=== PATIENT | male | born 1995 | race Caucasian/White ===

== ENCOUNTER 2018-06-27 10:17 | Emergency (ER) | payer MEDICAID ==
[~2018-06-27] VITALS: Wt 75.9 kg
[2018-06-27] MEDS ORDERED: IBUPROFEN 600 MG TAB PO ONE (12:00)
[2018-06-27] MEDS ORDERED: DOXY100T20 PO (12:09)
[2018-06-27] MEDS ORDERED: IBUP-1542 PO (12:09)
--- NOTE | 2018-06-27 12:16 | ERD ---
ER Documentation Chief Complaint Chief Complaint BACK PAIN X 2 WEEKS; POSSIBLE PAIN FROM DRAINED ABSCESS ON BACK HPI 22-year-old male presents with low back pain for last 2 weeks. He feels that it might be due to pilonidal cyst he had drained 4 months ago. He denies any fevers, vomiting, shortness of breath, weakness, bowel or bladder incontinence, urinary complaints. Pain is described as 4-10. May be some radiation from upper to lower back. Pain is dull. ROS All systems reviewed and are negative except as per history of present illness. Medications Home Meds Active Scripts Doxycycline Hyclate* (Doxycycline Hyclate*) 100 Mg Tablet.dr, 100 MG PO BID for 7 Days, TAB Prov:TUCKER GAITAN MD 06/27/18 Ibuprofen* (Motrin*) 600 Mg Tab, 600 MG PO Q6, #20 TAB Prov:TUCKER GAITAN MD 06/27/18 PMhx/Soc Medical and Surgical Hx: pt denies Medical Hx, pt denies Surgical Hx Hx Alcohol Use: No Hx Substance Use: No Hx Tobacco Use: No Smoking Status: Never smoker FmHx Family History: No diabetes, No coronary disease, No other Physical Exam Vitals Vital Signs Date Temp Pulse Resp B/P (MAP) Pulse Ox O2 O2 Flow FiO2 Time Delivery Rate 06/27/18 98.1 78 18 143/62 99 10:21 (89) Physical Exam Const: No acute distress Head: Atraumatic Eyes: Normal Conjunctiva ENT: Normal External Ears, Nose and Mouth. Neck: Full range of motion. No meningismus. Resp: Clear to auscultation bilaterally Cardio: Regular rate and rhythm, no murmurs Abd: Soft, non tender, non distended. Normal bowel sounds Skin: No petechiae or rashes Back: No midline or flank tenderness. Minimal tenderness from L2-L4 right greater than left. No midline tenderness or deformities. There is a small draining pilonidal cyst without significant erythema, fluctuance, induration. Ext: No cyanosis, or edema Neur: Awake and alert Psych: Normal Mood and Affect Results 24 hrs Laboratory Tests Test 06/27/18 11:50 Bedside Urine pH (LAB) 7.5 Bedside Urine Protein (LAB) Negative Bedside Urine Glucose (UA) Negative Bedside Urine Ketones (LAB) Negative Bedside Urine Blood Negative Bedside Urine Nitrite (LAB) Negative Bedside Urine Leukocyte Esterase (L Negative Current Medications Medications Dose Sig/Amanad Start Time Status Last (Trade) Ordered Route PRN Stop Time Admin Dose Reason Admin Ibuprofen 600 mg ONCE ONCE 06/27/18 DC 06/27/18 (Motrin) PO 12:00 06/27/18 11:42 12:01 Procedures/MDM Urine is negative. X-ray LS-Spine 3V Interpreted by me: Bones: No fracture, or lytic lesions Joints: No dislocation Foreign body: None. Impression-normal lumbar spine x-ray Patient was given ibuprofen for pain. Patient presents with low back pain which appears to be muscle skeletal. He does have a small chronically draining pilonidal cyst without significant infection, cellulitis, recurrent abscess. He has no signs of genitourinary etiology. Will treat with doxycycline for draining abscess, primary care follow-up and ibuprofen for back pain, as well as exercises. He is advised to follow-up with primary doctor return for fevers, vomiting, shortness of breath, new worsening symptoms. The patient was stable with no new complaints during the ER course. Clinically, there is no current evidence to suggest osteomyelitis, meningitis, sepsis, acute abdomen, pneumonia, stroke, acute coronary syndrome, pulmonary embolism, aortic dissection or any o ther emergent condition appearing to require further evaluation or hospitalization. Patient counseled regarding my diagnostic impression and care plan. Prior to discharge all questions answered. Pt agrees with treatment plan and understands strict return precautions. Pt is instructed to follow up with primary care provider within 24-48 hours. Precautionary instructions provided in cluding instructions to return to the ER if not improving or for any worsening or changing symptoms or concerns. Departure Diagnosis: Primary Impression: Pilonidal cyst Additional Impression: Back pain Back pain location: low back pain Chronicity: acute Back pain laterality: right Sciatica presence: without sciatica Qualified Codes: M54.5 - Low back pain Condition: Stable Patient Instructions: Back Exercises, Lumbar, Back Pain (Acute Or Chronic), Pilonidal Cyst, Infected (Abx Only) [facility] Usted se lerma hecho un examen mdico de control que le indica que no est en moe condicin que requiera tratamiento urgente en el Departamento de Emergencia. Un estudio ms profundo y el tratamiento de gill condicin pueden esperar sin ningn riesgo hasta que usted sea atendida/o en el consultorio de gill mdico o moe clnica. Es responsabilidad suya arreglar moe patel para el seguimiento del wilbur. MANEJO DE CONDICIONES NO URGENTES EN EL FUTURO 1) Si usted tiene un mdico de atencin primaria: Usted debera llamar a gill mdico de atencin primaria antes de venir al departamento de emergencia. Despus de las horas de consultorio, gill doctor o gill asociado/a est disponible por telfono. El mdico o enfermero de isabel en el servicio telefnico puede asesorarle por rodrigo medio para atender el problema, o wilbur contrario se puede programar moe patel. 2) Si usted no tiene un mdico de atencin primaria: Llame al mdico o clnica de referencia que aparece abajo karlo las horas de consultorio para hacer moe patel para que le vean. CLINICAS: [facility] [phone] [facility] [phone] [facility]. [facility] [phone] [facility]. [facility] [phone] [facility] [place] [phone] [facility]. [phone] Additional Instructions: x ray y orina normal. Examines normal hoy. Cheque otro vez con gill doctor primario en el proximo marshall or regresa para mas o nueva simptomas. TUCKER GAITAN MD Jun 27, 2018 12:16
[2018-06-27 12:17] VITALS: BP 135/80; PULSE 82; RESP 19
== END 2018-06-27 12:16 | disposition home or self-care (01) ==
LOC: FTE 10:17
DX: L05.01 Pilonidal cyst with abscess (principal)
CPT/HCPCS: 72100; 81003; Z7502; Z7610